=== PATIENT | female | born 1980 | race Caucasian/White ===

== ENCOUNTER 2016-05-01 22:06 | Emergency (ER) | payer MEDICAID ==
[~2016-05-01] VITALS: Ht 154.9 cm; Wt 52.2 kg
[2016-05-01 22:35] VITALS: BP 100/63
[2016-05-02] MEDS ORDERED: PSEUDOEPHEDRINE HCL 30 MG TABLET ONE (00:51)
[2016-05-02] MEDS ORDERED: SULFAMETH/TRIMETH 800/160 MG 1 UDTAB TABLET PO ONE ×2 (00:51→01:00)
[2016-05-02] MEDS ORDERED: PSEUDOEPHEDRINE HCL 30 MG TABLET PO ONE (01:00)
== END 2016-05-02 00:58 | disposition home or self-care (01) ==
LOC: ER 22:09
DX: J32.9 Chronic sinusitis, unspecified (principal); Z98.890 Other specified postprocedural states
CPT/HCPCS: A4606; Z7610

== ENCOUNTER 2023-08-12 07:53 | Emergency (ER) | payer MEDICAID, OTHER ==
[~2023-08-12] VITALS: Ht 157.5 cm; Wt 59.4 kg
[2023-08-12 08:00] VITALS: BP 127/62; TEMP 98.4
[2023-08-12] MEDS ORDERED: GENT5DRO4 RIGHTEYE (08:03)
[2023-08-12 08:08] VITALS: O2SAT 100
== END 2023-08-12 08:09 | disposition home or self-care (01) ==
LOC: ER 07:59
DX: H00.013 Hordeolum externum right eye, unspecified eyelid (principal); Z60.2 Problems related to living alone

== ENCOUNTER → 2023-10-07 | Emergency (ER) | payer OTHER ==
[~2023-10-07] VITALS: Ht 152.4 cm; Wt 59.4 kg
[~2023-10-07] MED LIST: GENT5DRO4 RIGHTEYE
[2023-10-07 11:03] VITALS: BP 91/62; TEMP 98.5; O2SAT 99
== END | disposition home or self-care (01) ==
LOC: ER 11:16
DX: J06.9 Acute upper respiratory infection, unspecified (principal); Z98.890 Other specified postprocedural states; Z79.899 Other long term (current) drug therapy; Z60.2 Problems related to living alone

== ENCOUNTER 2024-04-14 16:41 | Emergency (ER) | payer OTHER ==
[~2024-04-14] VITALS: Ht 152.4 cm; Wt 59.0 kg
[2024-04-14] MEDS: KETOROLAC TROMETHAMINE 15 MG/ML VIAL IM ONE (18:30)
[2024-04-14 19:11] LABS: PREGNANCY TEST URINE QUAL NEGATIVE (NEGATIVE)
[2024-04-14] MEDS ORDERED: KETOROLAC TROMETHAMINE 15 MG/ML VIAL ONE (19:35)
[2024-04-14] MEDS ORDERED: ACET-2605 PO (19:50)
[2024-04-14] MEDS ORDERED: NAPR-1009 PO (19:50)
[2024-04-14] MEDS ORDERED: BENZ-13 PO (19:50)
[2024-04-14 20:04] VITALS: BP 115/61; TEMP 98.2; O2SAT 100
== END 2024-04-14 20:05 | disposition home or self-care (01) ==
LOC: ER 16:49
DX: J11.1 Influenza due to unidentified influenza virus with other respiratory manifestations (principal); R06.02 Shortness of breath; R07.9 Chest pain, unspecified; M79.10 Myalgia, unspecified site; Z60.2 Problems related to living alone; Z20.822 Contact with and (suspected) exposure to COVID-19
CPT/HCPCS: 99284; 71045; 87426; 96372; 87804 ×2; 84703; J1885

== ENCOUNTER 2024-08-24 12:04 | Emergency (ER) | payer OTHER ==
[~2024-08-24] VITALS: Ht 152.4 cm; Wt 59.0 kg
[~2024-08-24 12:04] MED LIST changes: +ACET-2605 PO; +BENZ-13 PO; +NAPR-1009 PO
[2024-08-24] MEDS ORDERED: ACETAMINOPHEN ES 500 MG TABLET ONE (13:03)
[2024-08-24] MEDS ORDERED: LIDOCAINE 5% (PATCH) 1 EA PATCH TP ONE (13:03)
[2024-08-24] MEDS ORDERED: IBUPROFEN 400 MG TABLET ONE (13:04)
[2024-08-24] MEDS: LIDOCAINE 5% (PATCH) 1 EA PATCH TP SCH (13:09)
[2024-08-24] MEDS: ACETAMINOPHEN 160 MG/5 ML PO ONE (13:09)
[2024-08-24] MEDS: IBUPROFEN 400 MG TABLET PO ONE (13:09)
[2024-08-24] MEDS ORDERED: CYCL10TA9 PO (13:31)
[2024-08-24] MEDS ORDERED: KETO10TA2 PO (13:31)
[2024-08-24] MEDS ORDERED: LIDO30AD10 TP (13:31)
[2024-08-24 14:09] VITALS: BP 102/66; TEMP 98; O2SAT 98
[2024-08-24 14:31] LABS: APPEARANCE,URINE CLEAR (CLEAR); BILIRUBIN,URINE NEGATIVE (NEGATIVE); BLOOD, URINE NEGATIVE Ery/uL (NEGATIVE); COLOR,URINE YELLOW (YELLOW); KETONES,URINE NEGATIVE (NEGATIVE); LEUKOCYTE ESTERASE ,URINE TRACE (NEGATIVE); NITRITE, URINE NEGATIVE (NEGATIVE); PH,URINE 5.5 (5.0-8.0); PROTEIN,URINE NEGATIVE (NEGATIVE); UGLUCOSE NEGATIVE (NEGATIVE); UROBILINOGEN,URINE 0.2 EU/dL (0.2)
[2024-08-24 14:55] LABS: ADD URINE CULTURE NO; BACTERIA,URINE Few /HPF (None Seen); RBC,URINE 0-2 /HPF (0-2); SQUAMOUS EPITHELIAL CELL,UR Moderate /HPF (None Seen); WBC,URINE 0-2 /HPF (0-3)
== END 2024-08-24 14:09 | disposition home or self-care (01) ==
LOC: ER 12:09
DX: S39.012A Strain of muscle, fascia and tendon of lower back, initial encounter (principal); Z60.2 Problems related to living alone; Z79.899 Other long term (current) drug therapy; W18.39XA Other fall on same level, initial encounter; Y93.89 Activity, other specified; Y92.89 Other specified places as the place of occurrence of the external cause; Y99.8 Other external cause status
CPT/HCPCS: 81001